=== PATIENT | female | born 1975 | race Caucasian/White ===

== ENCOUNTER 2016-11-27 11:32 | Observation (INO) | payer BC ==
[2016-11-27] VITALS (9 sets, daily range): BP systolic 126–152; BP diastolic 82–91; PULSE 68–95; RESP 12–25; TEMP 96.7–97.8; O2SAT 95–100
[~2016-11-27 11:32] MED LIST: AMIT10 PO; CITA10SO PO; CLON.5 PO; HYDR-3129 PO; ONDA8TAB8 PO
[2016-11-27] MEDS ORDERED: CLON1 PO (12:19)
[2016-11-27] MEDS ORDERED: METO50TA PO (12:19)
[2016-11-27] MEDS ORDERED: VORT1TAB2 PO (12:19)
[2016-11-27] MEDS ORDERED: ASPIRIN 81 MG CHEW TAB PO ONE (13:00)
[2016-11-27] MEDS ORDERED: LORazepam 2 MG/ML VIAL IV PUSH ONE (13:00)
[2016-11-27] MEDS ORDERED: SODIUM CHLORIDE 0.9% FLUSH 5 ML FLUSH IVF PRN ×2 (13:00→15:15)
--- NOTE | 2016-11-27 13:12 | PD ---
HPI . Chest pain Chief Complaint: Chest Pain Time Seen by Provider: 12:16 Travel History International Travel<30 days: No Contact w/Intl Traveler<30days: No Traveled to known affect area: No History of Present Illness HPI Patient presents with chest pain which started yesterday. It is associated with dizziness, shortness of breath, tingling in her lips, blurred vision and high blood pressure. PFSH Past Medical History Anxiety: Yes Depression: Yes Heart Rhythm Problems: No Cancer: No Cardiovascular Problems: Yes (HEART MURMUR) High Cholesterol: No Chest Pain: Yes Congestive Heart Failure: No Diminished Hearing: No Endocrine: No Genitourinary: No Hypertension: Yes Immune Disorder: No Musculoskeletal: No Neurologic: No Psychiatric: Yes Reproductive: Yes (Endometriosis) Respiratory: Yes Tetanus Vaccination: Unknown Influenza Vaccination: Yes ?: Not Dilation and Curettage (D&C): Yes Past Surgical History Section: Yes Gynecologic Surgery: Yes ( , HYSTERECTOMY ) Hysterectomy: Yes Tonsillectomy: Yes Other Surgery: Yes (BACK ) Social History Alcohol Use: Yes Tobacco Use: No Substance Use: No Allergies-Medications (Allergen,Severity, Reaction): Coded Allergies: Flagyl (Verified Allergy, Unknown, 11/27/16) Reported Meds & Prescriptions Reported Meds & Active Scripts Active Reported Trintellix (Vortioxetine) 10 Mg Tab 10 Mg PO DAILY Metoprolol Tartrate 50 Mg Tab 50 Mg PO DAILY Klonopin (Clonazepam) 1 Mg Tab 1 Mg PO BID Review of Systems Except as stated in HPI: all other systems reviewed are Neg Eyes: Positive: Blurred Vision HENT: Positive: Lightheadedness Cardiovascular: Positive: Chest Pain or Discomfort Respiratory: Positive: Shortness of Breath Neurologic: Positive: Paresthesia Physical Exam Narrative GENERAL: The patient appears anxious to me SKIN: Warm and dry. HEAD: Atraumatic. Normocephalic. EYES: Pupils equal and round. ENT: No nasal bleeding or discharge. Mucous membranes pink and moist. NECK: Trachea midline. Neck is supple. CARDIOVASCULAR: Regular rate and rhythm. Heart sounds are normal. RESPIRATORY: No accessory muscle use. Lungs are clear with full air movement throughout. GASTROINTESTINAL: Abdomen soft, non-tender, nondistended. MUSCULOSKELETAL: No obvious deformities. No edema. NEUROLOGICAL: Awake and alert. No obvious cranial nerve deficits. Motor grossly within normal limits. Normal speech. PSYCHIATRIC: Appropriate mood and affect; insight and judgment normal. Anxious appearing. Data Data Last Documented VS Vital Signs Date Time Temp Pulse Resp B/P Pulse Ox O2 Delivery O2 Flow Rate FiO2 11/27/16 13:30 89 129/82 11/27/16 12:05 Room Air 11/27/16 12:05 97.5 16 100 Orders Electrocardiogram (11/27/16 11:56) Basic Metabolic Panel (Bmp) (11/27/16 12:54) Ckmb (Isoenzyme) Profile (11/27/16 12:54) Complete Blood Count With Diff (11/27/16 12:54) Magnesium (Mg) (11/27/16 12:54) Troponin I (11/27/16 12:54) Chest, Single Ap (11/27/16 12:54) Ecg Monitoring (11/27/16 12:54) Bilateral Bp Monitoring (11/27/16 12:54) Iv Access Insert/Monitor (11/27/16 12:54) Oximetry (11/27/16 12:54) Oxygen Administration (11/27/16 12:54) Aspirin Chew (Aspirin Chew) (11/27/16 13:00) Sodium Chloride 0.9% Flush (Ns Flush) (11/27/16 13:00) Lorazepam Inj (Ativan Inj) (11/27/16 13:00) CKMB (11/27/16 12:10) CKMB% (11/27/16 12:10) Labs Laboratory Tests Test 11/27/16 12:10 White Blood Count 9.4 TH/MM3 Red Blood Count 4.74 MIL/MM3 Hemoglobin 14.7 GM/DL Hematocrit 43.0 % Mean Corpuscular Volume 90.8 FL Mean Corpuscular Hemoglobin 31.0 PG Mean Corpuscular Hemoglobin 34.2 % Concent Red Cell Distribution Width 12.4 % Platelet Count 352 TH/MM3 Mean Platelet Volume 9.3 FL Neutrophils (%) (Auto) 62.7 % Lymphocytes (%) (Auto) 21.9 % Monocytes (%) (Auto) 11.1 % Eosinophils (%) (Auto) 3.3 % Basophils (%) (Auto) 1.0 % Neutrophils # (Auto) 5.9 TH/MM3 Lymphocytes # (Auto) 2.0 TH/MM3 Monocytes # (Auto) 1.0 TH/MM3 Eosinophils # (Auto) 0.3 TH/MM3 Basophils # (Auto) 0.1 TH/MM3 CBC Comment DIFF FINAL Differential Comment Sodium Level 140 MEQ/L Potassium Level 4.4 MEQ/L Chloride Level 106 MEQ/L Carbon Dioxide Level 26.3 MEQ/L Anion Gap 8 MEQ/L Blood Urea Nitrogen 15 MG/DL Creatinine 0.83 MG/DL Estimat Glomerular Filtration 76 ML/MIN Rate Random Glucose 89 MG/DL Calcium Level 9.5 MG/DL Magnesium Level 2.4 MG/DL Total Creatine Kinase 146 U/L Creatine Kinase MB 0.7 NG/ML Troponin I LESS THAN 0.02 NG/ML MDM Medical Decision Making Medical Screen Exam Complete: Yes Emergency Medical Condition: Yes Interpretation(s) EKG shows a normal sinus rhythm with no ST segment elevation or depression. Differential Diagnosis Differential diagnosis of chest pain includes but is not limited to musculoskeletal pain, pulmonary embolism, acute coronary syndrome, pneumonia, pleurisy Narrative Course Patient presents for the evaluation and treatment of chest pain associated with dizziness, shortness of breath, paresthesias, blurred vision. She most likely has anxiety. I have ordered Ativan pending her cardiac workup. CBC is normal. Chemistries are normal. Cardiac enzymes are negative. Chest x-ray is negative to the radiologist's interpretation. Chest x-ray was independently viewed by me. Patient complains of continued symptoms. I will admit her to the chest pain center. Critical Care Narrative Aggregate critical care time was [-] minutes. Time to perform other separately billable procedures was not included in the critical care time. My time did not include minutes spent treating any other patients simultaneously or on activities that did not directly contribute to the patient's treatment. The services I provided to this patient were to treat and/or prevent clinically significant deterioration that could result in: ACS, cardiac dysrhythmia, cardiac disability I provided critical care services requiring my management, as noted below: Chart data review, documentation time, medication orders and management, vital sign assessments/reviewing monitor data, ordering and reviewing lab tests, ordering and interpreting/reviewing x-rays and diagnostic studies, care of the patient and discussion of the patient with the admitting physicians. Diagnosis Primary Impression: Chest pain Qualified Code: R07.9 - Chest pain, unspecified type Admitting Information Admitting Physician Requests: Admit Condition: Stable Yeni Fregoso MD Nov 27, 2016 13:12
--- NOTE | 2016-11-27 13:21 | RADRPT ---
EXAM DATE/TIME: 11/27/2016 13:07 [facility] COMPARISON: No previous studies available for comparison. INDICATIONS : Chest pain. MEDICAL HISTORY : Heart murmur. SURGICAL HISTORY : None. ENCOUNTER: Initial ACUITY: 2 days PAIN SCORE: 8/10 LOCATION: Left lower chest FINDINGS: A single view of the chest demonstrates the lungs to be symmetrically aerated without evidence of mas s, infiltrate or effusion. The cardiomediastinal contours are unremarkable. Osseous structures are intact. CONCLUSION: 1. No acute cardiopulmonary findings identified. Arun Kemp MD on November 27, 2016 at 13:19 Board Certified Radiologist. This report was verified electronically.
[2016-11-27 13:33] LABS: AUTOMATED NEUTROPHIL # 5.9 TH/MM3 (1.8-7.7); BASOPHIL # 0.1 TH/MM3 (0-0.2); EOSINOPHIL # 0.3 TH/MM3 (0-0.4); EOSINOPHIL % 3.3 % (0.0-4.0); HEMO FLAGS DIFF FINAL; LYMPH % 21.9 % (9.0-44.0); MEAN CELL VOLUME 90.8 FL (80.0-100.0); MEAN CORPUSCULAR HGB CONC 34.2 % (32.0-36.0); MONO % 11.1 % (0.0-8.0); NEUT % 62.7 % (16.0-70.0); PLATELET COUNT 352 TH/MM3 (150-450); RED BLOOD COUNT 4.74 MIL/MM3 (4.00-5.30); RED CELL DISTRIBUTION WIDTH 12.4 % (11.6-17.2); WHITE BLOOD COUNT 9.4 TH/MM3 (4.0-11.0)
[2016-11-27 14:04] LABS: ANION GAP 8 MEQ/L (5-15); BICARBONATE 26.3 MEQ/L (21.0-32.0); BLOOD UREA NITROGEN 15 MG/DL (7-18); CHLORIDE 106 MEQ/L (98-107); CREATINE KINASE 146 U/L (26-192); GLOMERULAR FILTRATION RATE 76 ML/MIN (>89); MAGNESIUM 2.4 MG/DL (1.5-2.5); POTASSIUM 4.4 MEQ/L (3.5-5.1); SODIUM (NA) 140 MEQ/L (136-145)
[2016-11-27 14:17] LABS: CKMB 0.7 NG/ML (0.5-3.6)
[2016-11-27] MEDS ORDERED: ONDANSETRON HCL 4 MG/2 ML VIAL IV PUSH ONE (14:30)
[2016-11-27] MEDS ORDERED: METO50TA11 PO (15:11)
[2016-11-27] MEDS ORDERED: ACETAMINOPHEN/HYDROcodone 325 MG/7.5 MG TAB PO PRN (15:15)
[2016-11-27] MEDS ORDERED: ACETAMINOPHEN 500 MG CPLT PO PRN (15:15)
[2016-11-27] MEDS ORDERED: KETOROLAC TROMETHAMINE 30 MG/ML (IVP) VIAL IVP ONE (15:15)
[2016-11-27] MEDS: PANTOPRAZOLE SOD 40 MG DELAYED RELEASE TAB PO SCH (16:41)
[2016-11-27] MEDS ORDERED: TEMAZEPAM 15 MG CAP PO PRN (16:45)
[2016-11-27 16:53] LABS: CREATINE KINASE 99 U/L (26-192)
[2016-11-27] MEDS ORDERED: SODIUM CHLORID 0.9% 500 ML INJ 500 ML IV SCH (17:00)
[2016-11-27] MEDS: HYDROmorphone HCL PF 1 MG/ML VIAL IV PUSH PRN ×2 (18:22→22:34)
[2016-11-27 19:18] LABS: CREATINE KINASE 91 U/L (26-192)
[2016-11-27] MEDS: SODIUM CHLORIDE 0.9% FLUSH 5 ML FLUSH IVF SCH (21:00)
[2016-11-27] MEDS: clonazePAM 1 MG TAB PO SCH (21:14)
[2016-11-27] MEDS: ONDANSETRON HCL 4 MG/2 ML VIAL IV PRN (22:35)
[2016-11-28] VITALS (12 sets, daily range): BP systolic 90–130; BP diastolic 52–89; PULSE 54–80; RESP 16–20; TEMP 97.5–98.2; O2SAT 94–99
[2016-11-28] MEDS: HYDROmorphone HCL PF 1 MG/ML VIAL IV PUSH PRN ×4 (03:04→21:52)
[2016-11-28] MEDS: METOPROLOL SUCCINATE 50 MG EXTENDED RELEASE TAB PO SCH ×2 (06:33→07:57)
[2016-11-28] MEDS: ONDANSETRON HCL 4 MG/2 ML VIAL IV PRN ×3 (07:57→23:30)
[2016-11-28] MEDS: SODIUM CHLORIDE 0.9% FLUSH 5 ML FLUSH IVF SCH ×2 (07:58→20:22)
[2016-11-28] MEDS: PANTOPRAZOLE SOD 40 MG DELAYED RELEASE TAB PO SCH (07:58)
[2016-11-28] MEDS: ASPIRIN 325 MG TAB PO SCH (07:58)
[2016-11-28] MEDS: clonazePAM 1 MG TAB PO SCH ×2 (07:58→20:19)
--- NOTE | 2016-11-28 08:56 | PD.CARD.PN ---
Subjective Subjective Remarks PT COMPLAINS OF CONSTANT CP. THE PAIN HAS BEEN PRESENT FOR TWO DAYS. ALSO C/O OF EMESIS BUT DENIES ABDOMINAL PAIN. Objective Vital Signs / I&O Vital Signs Date Time Temp Pulse Resp B/P Pulse Ox O2 Delivery O2 Flow Rate FiO2 11/28/16 07:47 97.5 68 20 115/77 95 11/28/16 06:28 97.6 67 18 91/62 99 11/28/16 02:30 94/62 11/28/16 02:05 97.5 70 18 90/56 98 11/28/16 00:34 98.1 54 16 95/52 94 11/27/16 21:27 68 11/27/16 21:18 95 21 11/27/16 20:32 97.7 81 18 126/90 95 11/27/16 18:51 18 11/27/16 17:53 18 11/27/16 16:51 96.7 95 18 126/88 95 11/27/16 13:30 89 129/82 11/27/16 13:00 92 18 129/82 99 Room Air 11/27/16 12:05 Room Air 11/27/16 12:00 97.8 85 25 146/91 96 Room Air 11/27/16 11:34 97.8 89 12 152/90 99 Room Air Physical Exam CARDIAC: RRR LUNGS: CTA ABD: NON TENDER. Laboratory Laboratory Tests Test 11/27/16 11/27/16 11/27/16 11/27/16 12:10 15:50 17:50 20:45 White Blood Count 9.4 TH/MM3 Red Blood Count 4.74 MIL/MM3 Hemoglobin 14.7 GM/DL Hematocrit 43.0 % Mean Corpuscular Volume 90.8 FL Mean Corpuscular Hemoglobin 31.0 PG Mean Corpuscular Hemoglobin 34.2 % Concent Red Cell Distribution Width 12.4 % Platelet Count 352 TH/MM3 Mean Platelet Volume 9.3 FL Neutrophils (%) (Auto) 62.7 % Lymphocytes (%) (Auto) 21.9 % Monocytes (%) (Auto) 11.1 % Eosinophils (%) (Auto) 3.3 % Basophils (%) (Auto) 1.0 % Neutrophils # (Auto) 5.9 TH/MM3 Lymphocytes # (Auto) 2.0 TH/MM3 Monocytes # (Auto) 1.0 TH/MM3 Eosinophils # (Auto) 0.3 TH/MM3 Basophils # (Auto) 0.1 TH/MM3 CBC Comment DIFF FINAL Differential Comment Sodium Level 140 MEQ/L Potassium Level 4.4 MEQ/L Chloride Level 106 MEQ/L Carbon Dioxide Level 26.3 MEQ/L Anion Gap 8 MEQ/L Blood Urea Nitrogen 15 MG/DL Creatinine 0.83 MG/DL Estimat Glomerular Filtration 76 ML/MIN Rate Random Glucose 89 MG/DL Calcium Level 9.5 MG/DL Magnesium Level 2.4 MG/DL Total Creatine Kinase 146 U/L 99 U/L 91 U/L Creatine Kinase MB 0.7 NG/ML Troponin I LESS THAN 0.02 LESS THAN 0.02 LESS THAN 0.02 NG/ML NG/ML NG/ML D-Dimer Quantitative (PE/DVT) LESS THAN 0.19 MG/L FEU Assessment and Plan Assessment and Plan ATYPICAL CHEST PAIN: PATIENT EVALUATED BY DR TIMA LA, SYMPTOMS NOT CARDIAC. WILL ADMIT TO [facility] FOR FURTHER EVALUATION. Rishabh Zapien Nov 28, 2016 08:56
[2016-11-28] MEDS ORDERED: VORTIOXETINE 10 MG PO SCH (09:00)
[2016-11-28 09:45] LABS: INDIRECT BILIRUBIN 0.5 MG/DL (0.0-0.8); TOTAL BILIRUBIN ADULT 0.6 MG/DL (0.2-1.0)
--- NOTE | 2016-11-28 10:26 | MH ---
cc: JAG LA DATE OF ADMISSION: 11/27/2016 1975 CHIEF COMPLAINT Chest pain HISTORY OF PRESENT ILLNESS This is a 41-year-old female that presents to the ED with complaint of chest comfort and blood pressure issue. The patient states that her blood pressure has been elevated for the past week. She has been to a doctor several times over this week and it had been high every time. Most recent 155/111 which was earlier today. She has been feeling dizzy and lightheaded. She also states that she had a little blurred vision, tingling in her fingers and her lips. She denies any not weakness in her extremities. She has felt nauseous. She also complains of a squeezing inside of her chest that began around 1 o'clock in the morning. That has been there constantly ever since. She states it is worse with any type of movements. She states she follows with [facility] [employer] which is Dr. Quiros. The patient states she follows with him for hypertension. She has never had a cardiac workup. She states she has never had a stress test, heart catheterization. Her primary care physician is ____. Denies recent illness. Denies fever, chills. PAST MEDICAL HISTORY 1. Hypertension, 2. Chronic back pain. Denies hyperlipidemia, diabetes and known CAD. FAMILY HISTORY She denies family history of CAD. SOCIAL HISTORY The patient is a lifetime nonsmoker, has on average one or two beers a week. Denies illicit drugs. She is currently from her . PAST SURGICAL HISTORY 1. , 2. Hysterectomy, 3. Tonsillectomy 4. L5-S1 diskectomy. 5. She has had twelve laparoscopies secondary to endometriosis and is scheduled to have another procedure beginning of next month for similar. ALLERGIES FLAGYL MEDICATIONS 1. Trintellix 2. Metoprolol succinate. 3. Klonopin. REVIEW OF SYSTEMS GENERAL: Denies fevers or chills. Denies recent illnesses. HEENT: Denies headache, earache, sore throat, difficulty swallowing. CARDIOVASCULAR: Describes the discomfort as mentioned above. Denies diaphoresis. Denies sensation of heart beating rapidly or irregularly. Denies syncope. RESPIRATORY: Denies shortness of breath or inspirational chest discomfort. Denies coughing, wheezing or hemoptysis. GI: Denies nausea, vomiting, diarrhea, abdominal pain or blood in stool. MUSCULOSKELETAL: Complains of chronic back pain. Denies calf pain or swelling. NEUROVASCULAR: Denies headache. She was feeling a little dizzy. She denies any tingling in her fingertips and her lips. Denies weakness in extremities. ENDOCRINE: Denies polydipsia HEMATOLOGIC: Denies bruising. SKIN: Denies rash or itching. PHYSICAL EXAMINATION VITAL SIGNS: In the emergency initially included a blood pressure of 152/90, heart rate is 99, respirations 12, pulse oximetry 98% on room air and she is afebrile. Most recent vital signs include blood pressure 122/89. GENERAL: The patient seen in the examination room in no apparent stress. She is pleasant. She speaks in clear and complete sentences. Her daughter and soon to be step daughter are also at the bedside. HEENT: Head is atraumatic, normocephalic. NECK: Supple without lymphadenopathy. Trachea midline. No JVD or carotid bruit. CARDIOVASCULAR: Regular rate and rhythm without gallop or rub. Grade 2 systolic murmur at left sternal border. RESPIRATORY: Clear to auscultation bilaterally. No wheezing, rales or rhonchi. No use of accessory muscles. There is a rather easily reproducible discomfort to the chest wall even with auscultating with a stethoscope. GI: Abdomen is nontender, nondistended. Bowel sounds are normal. No guarding or rebound. No obvious pulsatile mass or bruit. No CVA tenderness. Strong femoral pulses bilaterally. MUSCULOSKELETAL: Patient moving upper and lower extremities freely. No joint tenderness or edema. No calf tenderness or edema, no Homans' sign. Strong pulses in upper and lower extremities NEUROVASCULAR: The patient is alert and oriented. Cranial II-XII are grossly intact. No focal deficits and speech is clear. SKIN: No rashes and turgor is normal. LABORATORY DATA CBC is unremarkable. Basic metabolic panel is essentially unremarkable. GFR is mildly increased at 76. First set of cardiac enzymes normal. IMAGING STUDIES Single view chest x-ray read by radiology as no acute cardiopulmonary findings. CARDIOLOGY STUDIES EKGs - first two EKGs are sinus rhythm without significant ST segment depression or elevation. ASSESSMENT 1. Chest pain: The patient's discomfort is atypical. She will continue to have serial cardiac enzymes and EKGs for ruling out purposes. She has been seen by Dr. Jag La and will reevaluate in the morning to determine if she needs stress testing. Otherwise, she will be monitored overnight. 2. Hypertension: Continue current medication. The patient is stable at this time. She is agreeable to this plan. Dictated by VIRGEN Jesus MD NERY Braga/ /4:51 PM /10:25 AM
--- NOTE | 2016-11-28 13:24 | HHI.PR ---
Subjective Remarks resting comfortably with no distress. has some chest wall pain. no sob. wants to try something to eat. Objective Vitals Vital Signs Date Time Temp Pulse Resp B/P Pulse Ox O2 Delivery O2 Flow Rate FiO2 11/28/16 12:21 98.2 65 20 109/68 99 11/28/16 08:26 64 11/28/16 07:47 97.5 68 20 115/77 95 11/28/16 06:28 97.6 67 18 91/62 99 11/28/16 02:30 94/62 11/28/16 02:05 97.5 70 18 90/56 98 11/28/16 00:34 98.1 54 16 95/52 94 11/27/16 21:27 68 11/27/16 21:18 95 21 11/27/16 20:32 97.7 81 18 126/90 95 11/27/16 18:51 18 11/27/16 17:53 18 11/27/16 16:51 96.7 95 18 126/88 95 11/27/16 13:30 89 129/82 Result Diagram: 11/27/16 1210 11/27/16 1210 Imaging Last Impressions Chest X-Ray 11/27/16 1254 Signed Impressions: Service Date/Time: November 13:07 - CONCLUSION: 1. No acute cardiopulmonary findings identified. Arun Kemp MD Objective Remarks GENERAL: This is a well-nourished, well-developed patient, in no apparent distress. CARDIOVASCULAR: Regular rate and regular rhythm without murmurs, gallops, or rubs. RESPIRATORY: Clear to auscultation. Breath sounds equal bilaterally. No wheezes , rales, or rhonchi. GASTROINTESTINAL: Abdomen soft, non-tender, nondistended. Normal, active bowel sounds MUSCULOSKELETAL: Extremities without clubbing, cyanosis, or edema. NEURO: Alert & Oriented x4 to person, place, time, situation. Moves all ext x4 Procedures none Medications and IVs Current Medications Aspirin (Aspirin Chew) 81 mg ONCE ONCE PO Last administered on 11/27/16t 13:36 ; Start 11/27/16 at 13:00; Stop 11/27/16 at 13:01; Status DC IV Flush (NS Flush) 2 ml UNSCH PRN IVF FLUSH AFTER USING IV ACCESS Last administered on 11/27/16 13:36; Start 11/27/16 at 13:00; Stop 11/27/16 at 15:22 ; Status DC Lorazepam (Ativan Inj) 2 mg ONCE ONCE IV PUSH Last administered on 11/27/16 13:35; Start 11/27/16 at 13:00; Stop 11/27/16 at 13:01; Status DC Ondansetron HCl (Zofran Inj) 4 mg ONCE ONCE IV PUSH Last administered on 14:28; Start 11/27/16 at 14:30; Stop 11/27/16 at 14:31; Status DC Ketorolac Tromethamine (Toradol Inj) 30 mg ONCE ONCE IVP ; Start 11/27/16 at 15 :15; Stop 11/27/16 at 16:36; Status DC IV Flush (NS Flush) 2 ml UNSCH PRN IVF FLUSH AFTER USING IV ACCESS; Start 11/27 at 15:15 IV Flush (NS Flush) 2 ml BID IVF Last administered on 11/28/16 07:58; Start at 21:00 Acetaminophen (Tylenol) 500 mg Q4H PRN PO HEADACHE; Start 11/27/16 at 15:15 Acetaminophen/ Hydrocodone Bitart ([place] 7.5-325 Mg) 1 tab Q4H PRN PO PAIN SCALE 1 TO 7 Last administered on 11/27/16 16:07; Start 11/27/16 at 15:15 Ondansetron HCl (Zofran Inj) 4 mg Q6H PRN IV NAUSEA Last administered on 07:57; Start 11/27/16 at 15:15 Pantoprazole Sodium (Protonix) 40 mg DAILY PO Last administered on 11/28/16 07 :58; Start 11/27/16 at 15:15 Aspirin (Aspirin) 325 mg DAILY PO Last administered on 11/28/16 07:58; Start 11/28/16 at 09:00 Clonazepam (KlonoPIN) 1 mg BID PO Last administered on 11/28/16 07:58; Start 11/27/16 at 21:00 Patient Own Medication PT OWN MED: Vortioxetine (Trintellix... DAILY PO ; Start 11/28/16 at 09:00; Status Hold Hydromorphone HCl (Dilaudid Pf Inj) 1 mg Q4H PRN IV PUSH PAIN GREATER THAN 8 Last administered on 11/28/16 12:50; Start 11/27/16 at 16:45 Temazepam (Restoril) 15 mg HS PRN PO INSOMNIA; Start 11/27/16 at 16:45 Metoprolol Succinate 50 mg 50 mg DAILY PO Last administered on 11/28/16 07:57 ; Start 11/28/16 at 09:00 Sodium Chloride (NS 500 ml Inj) 500 ml @ 125 mls/hr NOW IV Last administered on 11/27/16 17:43; Start 11/27/16 at 17:00; Stop 11/27/16 at 20:59; Status DC A/P Assessment and Plan A/P - chest pain; atypical- enzymes negative- evaluated by cardiology. continue with pain control- -anxiety; continue Klonopin -nausea- better- will start liquid diet and advance as tolerated. -hypertension; continue BB and monitor -history of endometriosis- f/u as outpatient. Oma Jiang MD Nov 28, 2016 13:24
[2016-11-28] MEDS ORDERED: ACETAMINOPHEN/HYDROcodone 325 MG/7.5 MG TAB PO PRN ×2 (13:30)
--- NOTE | 2016-11-28 15:17 | EKG ---
Date Performed: 11/28/2016 Time Performed: 01:58:35 PTAGE: 41 years EKG: Sinus rhythm NONSPECIFIC T-WAVE ABNORMALITY BORDERLINE ECG PREVIOUS TRACING : 11/27/2016 18.13 With shortened [place] interval DOCTOR: Jag Newell Interpretating Date/Time 11/28/2016 15:16:13
--- NOTE | 2016-11-28 15:20 | EKG ---
Date Performed: 11/27/2016 Time Performed: 18:13:47 PTAGE: 41 years EKG: Sinus rhythm NONSPECIFIC ST & T-WAVE ABNORMALITY BORDERLINE ECG PREVIOUS TRACING : 11/27/2016 15.41 Since previous tracing, no significant change noted DOCTOR: Jag Newell Interpretating Date/Time 11/28/2016 15:19:15
--- NOTE | 2016-11-28 15:21 | EKG ---
Date Performed: 11/27/2016 Time Performed: 15:41:46 PTAGE: 41 years EKG: Sinus rhythm ABNORMAL ECG PREVIOUS TRACING : 11/27/2016 11.52 Since previous tracing, no significant change noted DOCTOR: Jag Newell Interpretating Date/Time 11/28/2016 15:20:04
--- NOTE | 2016-11-28 15:22 | EKG ---
Date Performed: 11/27/2016 Time Performed: 11:52:03 PTAGE: 41 years EKG: Sinus rhythm POSSIBLE LEFT ATRIAL ENLARGEMENT ABNORMAL ECG PREVIOUS TRACING : 06/15/2016 17.22 Since previous tracing, no significant change noted DOCTOR: Jag Newell Interpretating Date/Time 11/28/2016 15:21:31
[2016-11-29] MEDS: HYDROmorphone HCL PF 1 MG/ML VIAL IV PUSH PRN (01:56)
[2016-11-29 03:56] VITALS: BP 93/51; PULSE 61; RESP 19; TEMP 97.8; O2SAT 96
--- NOTE | 2016-11-29 07:35 | HHI.PR ---
Subjective Remarks feels somewhat better today. pain is better today. says that she's good enough to go home. d/w the RN. Objective Vitals Vital Signs Date Time Temp Pulse Resp B/P Pulse Ox O2 Delivery O2 Flow Rate FiO2 11/29/16 03:56 97.8 61 19 93/51 96 11/29/16 02:59 14 11/28/16 23:21 71 112/76 11/28/16 21:40 80 130/89 11/28/16 20:13 97.7 59 19 113/74 99 11/28/16 20:00 74 11/28/16 20:00 99 11/28/16 15:40 97.8 65 16 91/52 97 11/28/16 12:21 98.2 65 20 109/68 99 11/28/16 08:26 64 11/28/16 07:47 97.5 68 20 115/77 95 Result Diagram: 11/27/16 1210 11/27/16 1210 Imaging Last Impressions Chest X-Ray 11/27/16 1254 Signed Impressions: Service Date/Time: November 13:07 - CONCLUSION: 1. No acute cardiopulmonary findings identified. Arun Kemp MD Objective Remarks GENERAL: This is a well-nourished, well-developed patient, in no apparent distress. CARDIOVASCULAR: Regular rate and regular rhythm without murmurs, gallops, or rubs. RESPIRATORY: Clear to auscultation. Breath sounds equal bilaterally. No wheezes , rales, or rhonchi. GASTROINTESTINAL: Abdomen soft, non-tender, nondistended. Normal, active bowel sounds MUSCULOSKELETAL: Extremities without clubbing, cyanosis, or edema. NEURO: Alert & Oriented x4 to person, place, time, situation. Moves all ext x4 Procedures none Medications and IVs Current Medications Aspirin (Aspirin Chew) 81 mg ONCE ONCE PO Last administered on 11/27/16 13:36 ; Start 11/27/16 at 13:00; Stop 11/27/16 at 13:01; Status DC IV Flush (NS Flush) 2 ml UNSCH PRN IVF FLUSH AFTER USING IV ACCESS Last administered on 11/27/16 13:36; Start 11/27/16 at 13:00; Stop 11/27/16 at 15:22 ; Status DC Lorazepam (Ativan Inj) 2 mg ONCE ONCE IV PUSH Last administered on 11/27/16 13:35; Start 11/27/16 at 13:00; Stop 11/27/16 at 13:01; Status DC Ondansetron HCl (Zofran Inj) 4 mg ONCE ONCE IV PUSH Last administered on 14:28; Start 11/27/16 at 14:30; Stop 11/27/16 at 14:31; Status DC Ketorolac Tromethamine (Toradol Inj) 30 mg ONCE ONCE IVP ; Start 11/27/16 at 15 :15; Stop 11/27/16 at 16:36; Status DC IV Flush (NS Flush) 2 ml UNSCH PRN IVF FLUSH AFTER USING IV ACCESS; Start 11/27 at 15:15 IV Flush (NS Flush) 2 ml BID IVF Last administered on 11/28/16 20:22; Start at 21:00 Acetaminophen (Tylenol) 500 mg Q4H PRN PO HEADACHE; Start 11/27/16 at 15:15 Acetaminophen/ Hydrocodone Bitart ([place] 7.5-325 Mg) 1 tab Q4H PRN PO PAIN SCALE 1 TO 7 Last administered on 11/27/16 16:07; Start 11/27/16 at 15:15; Stop 11/28/16 at 13:26; Status DC Ondansetron HCl (Zofran Inj) 4 mg Q6H PRN IV NAUSEA Last administered on 23:30; Start 11/27/16 at 15:15 Pantoprazole Sodium (Protonix) 40 mg DAILY PO Last administered on 11/28/16 07 :58; Start 11/27/16 at 15:15 Aspirin (Aspirin) 325 mg DAILY PO Last administered on 11/28/16 07:58; Start 11/28/16 at 09:00 Clonazepam (KlonoPIN) 1 mg BID PO Last administered on 11/28/16 20:19; Start 11/27/16 at 21:00 Patient Own Medication PT OWN MED: Vortioxetine (Trintellix... DAILY PO ; Start 11/28/16 at 09:00; Status Hold Hydromorphone HCl (Dilaudid Pf Inj) 1 mg Q4H PRN IV PUSH PAIN GREATER THAN 8 Last administered on 11/29/16 01:56; Start 11/27/16 at 16:45 Temazepam (Restoril) 15 mg HS PRN PO INSOMNIA Last administered on 11/28/16 23 :31; Start 11/27/16 at 16:45 Metoprolol Succinate 50 mg 50 mg DAILY PO Last administered on 11/28/16 07:57 ; Start 11/28/16 at 09:00 Sodium Chloride (NS 500 ml Inj) 500 ml @ 125 mls/hr NOW IV Last administered on 11/27/16 17:43; Start 11/27/16 at 17:00; Stop 11/27/16 at 20:59; Status DC Acetaminophen/ Hydrocodone Bitart ([place] 7.5-325 Mg) 1 tab Q4H PRN PO PAIN 4-6 ; Start 11/28/16 at 13:30 Acetaminophen/ Hydrocodone Bitart ([place] 7.5-325 Mg) 2 tab Q6H PRN PO PAIN 7- 10 Last administered on 11/28/16 20:18; Start 11/28/16 at 13:30 A/P Assessment and Plan A/P - chest pain; atypical- enzymes negative- evaluated by cardiology and believed that the pain is not cardiac. pain is better today. -anxiety; continue Klonopin- f/u with psych as outpatient. -nausea- better- will advance the diet -hypertension; continue BB and monitor -history of endometriosis- f/u as outpatient. Discharge Planning dc home later today if tolerating the diet. f/u with pcp and psych. see med list. d/w the patient and RN. Oma Jiang MD Nov 29, 2016 07:35
[2016-11-29] MEDS ORDERED: NORC5TAB PO (07:36)
--- NOTE | 2016-11-29 07:37 | HHI.DCPOC ---
Discharge Care Plan Diagnosis: (1) Chest pain Your Health Problems Are: Chest Pain Goals to Promote Your Health * To prevent worsening of your condition and complications * To maintain your health at the optimal level Directions to Meet Your Goals Take your medications as prescribed Follow your dietary instruction Follow activity as directed Keep your appointments as scheduled Take your immunizations and boosters as scheduled If your symptoms worsen call your PCP, if no PCP go to Urgent Care Center or Emergency Room Smoking is Dangerous to Your Health. Avoid second hand smoke Call the 24-hour hour crisis hotline for domestic abuse at Oma Jiang MD Nov 29, 2016 07:37
--- NOTE | 2016-11-29 07:37 | HHI.DS ---
Discharge Summary Admission Date Nov 27, 2016 at 14:25 Discharge Date: Nov 29, 2016 Admitting Diagnosis chest pain (1) Chest pain ICD Code: R07.9 Diagnosis: Principal Procedures none Brief History - From Admission This is a 41-year-old female that presents to the ED with complaint of chest comfort and blood pressure issue. The patient states that her blood pressure has been elevated for the past week. She has been to a doctor several times over this week and it had been high every time. Most recent 155/111 which was earlier today. She has been feeling dizzy and lightheaded. She also states that she had a little blurred vision, tingling in her fingers and her lips. She denies any not weakness in her extremities. CBC/BMP: 11/27/16 1210 11/27/16 1210 Significant Findings Laboratory Tests Test 11/27/16 11/27/16 11/27/16 12:10 15:50 17:50 Monocytes (%) (Auto) 11.1 % (0.0-8.0) Monocytes # (Auto) 1.0 TH/MM3 (0-0.9) Estimat Glomerular Filtration 76 ML/MIN (>89) Rate Troponin I LESS THAN 0.02 LESS THAN 0.02 LESS THAN 0.02 NG/ML NG/ML NG/ML (0.02-0.05) (0.02-0.05) (0.02-0.05) Imaging Last Impressions Chest X-Ray 11/27/16 1254 Signed Impressions: Service Date/Time: November 13:07 - CONCLUSION: 1. No acute cardiopulmonary findings identified. Arun Kemp MD PE at Discharge GENERAL: This is a well-nourished, well-developed patient, in no apparent distress. CARDIOVASCULAR: Regular rate and regular rhythm without murmurs, gallops, or rubs. RESPIRATORY: Clear to auscultation. Breath sounds equal bilaterally. No wheezes , rales, or rhonchi. GASTROINTESTINAL: Abdomen soft, non-tender, nondistended. Normal, active bowel sounds MUSCULOSKELETAL: Extremities without clubbing, cyanosis, or edema. NEURO: Alert & Oriented x4 to person, place, time, situation. Moves all ext x4 Hospital Course - chest pain; atypical- enzymes negative- evaluated by cardiology and believed that the pain is not cardiac. pain is better today. -anxiety; continue Klonopin- f/u with psych as outpatient. -nausea- better- will advance the diet -hypertension; continue BB and monitor -history of endometriosis- f/u as outpatient. Pt Condition on Discharge: Fair Discharge Disposition: Discharge Home Discharge Time: <= 30 minutes Discharge Instructions DIET: Follow Instructions for: Heart Healthy Diet Activities you can perform: Regular-No Restrictions Follow up Referrals: PCP Follow-up Psychiatry Adult New Medications: Hydrocodone-Acetaminophen (Sigurd) 5-325 mg Tab 1 TAB PO Q6H PRN PAIN #12 Ref 0 TAB Continued Medications: Clonazepam (Klonopin) 1 Mg Tab 1 MG PO BID #60 Ref 0 TAB Metoprolol Succinate ER 24 HR (Metoprolol Succinate ER 24 HR) 50 Mg Tab 50 MG PO DAILY #30 Ref 0 TAB Vortioxetine (Trintellix) 10 Mg Tab 10 MG PO DAILY Control Depression #30 Ref 0 TAB Oma Jiang MD Nov 29, 2016 07:37
[2016-11-29 07:40] VITALS: BP 102/72; PULSE 62; RESP 17; TEMP 98; O2SAT 99
[2016-11-29] MEDS ORDERED: HYDROmorphone HCL PF 1 MG/ML VIAL IV PUSH ONE (07:45)
[2016-11-29 07:51] VITALS: PULSE 74
[2016-11-29] MEDS: METOPROLOL SUCCINATE 50 MG EXTENDED RELEASE TAB PO SCH (08:08)
[2016-11-29] MEDS: clonazePAM 1 MG TAB PO SCH (08:08)
[2016-11-29] MEDS: ASPIRIN 325 MG TAB PO SCH (08:08)
[2016-11-29] MEDS: SODIUM CHLORIDE 0.9% FLUSH 5 ML FLUSH IVF SCH (08:08)
[2016-11-29] MEDS: PANTOPRAZOLE SOD 40 MG DELAYED RELEASE TAB PO SCH (08:09)
[2016-11-29 08:42] VITALS: RESP 18
--- NOTE | 2016-11-29 14:14 | EKG ---
Date Performed: 11/28/2016 Time Performed: 07:44:41 PTAGE: 41 years EKG: Sinus rhythm POSSIBLE LEFT ATRIAL ENLARGEMENT POSSIBLE RIGHT VENTRICULAR CONDUCTION DELAY ABNORMAL ECG PREVIOUS TRACING : 11/28/2016 01.58 DOCTOR: Braulio Kim Interpretating Date/Time 11/29/2016 14:12:35
== END 2016-11-29 10:54 | disposition home or self-care (01) ==
LOC: NEPA 11:32 → NEDA 14:25 → NEPHCDU 16:49
PROVIDERS: ADMIT Internal Medicine; ATTEND Internal Medicine
DX: R07.89 Other chest pain (principal); I10 Essential (primary) hypertension; F41.9 Anxiety disorder, unspecified; R94.31 Abnormal electrocardiogram [ECG] [EKG]
CPT/HCPCS: 71010; 80048; 80076; 82550; 82552; 83690; 83735; 84484; 85025; 85379; 93005; 96374; 99291; G0378; J1170; J2060; J2405; J7040

== ENCOUNTER 2016-12-29 16:22 | Emergency (ER) | payer BC ==
[~2016-12-29] VITALS: Ht 162.6 cm; Wt 81.9 kg
[~2016-12-29 16:22] MED LIST changes: -AMIT10 PO; -CITA10SO PO; -CLON.5 PO; +CLON1 PO; -HYDR-3129 PO; +METO50TA11 PO; +NORC5TAB PO; -ONDA8TAB8 PO; +VORT1TAB2 PO
[2016-12-29 16:45] VITALS: BP_SYST 85; BP_SYST 91; BP_DIAS 59; BP_DIAS 68; PULSE 62; RESP 16; TEMP 98; O2SAT 100
[2016-12-29] MEDS ORDERED: XANA1TAB2 PO (17:13)
[2016-12-29] MEDS ORDERED: MOTR200T4 PO (17:13)
--- NOTE | 2016-12-29 17:27 | PD ---
HPI Chief Complaint: Abdominal Pain Time Seen by Provider: 17:03 Travel History International Travel<30 days: No Contact w/Intl Traveler<30days: No Traveled to known affect area: No History of Present Illness HPI This is a 41-year-old female who presents to the emergency department with left lower quadrant abdominal pain 2 weeks after having a left oophorectomy performed at [facility]. The patient reports that she's been taking Motrin for pain but it's not been helping. She is her pain is constant, moderate severity, throbbing in the left side, with some associated bleeding from her belly button. She feels like she's not healing as fast as she should be. She went to her follow-up appointment in her doctor felt like she appeared well. She denies any opiate prescriptions in the past month when asked. PFSH Past Medical History Asthma: Yes Anxiety: Yes Depression: Yes Heart Rhythm Problems: No Cancer: No Cardiovascular Problems: Yes (htn on meds) High Cholesterol: No Chest Pain: Yes Congestive Heart Failure: No Diminished Hearing: No Endocrine: No Genitourinary: No Hypertension: Yes Immune Disorder: No Musculoskeletal: No Neurologic: No Psychiatric: Yes Reproductive: Yes (Endometriosis) Respiratory: Yes (asthma) Immunizations Current: Yes Tetanus Vaccination: > 5 Years Influenza Vaccination: Yes ?: Not Ovarian Cysts: Yes (LSO) Dilation and Curettage (D&C): Yes Past Surgical History Section: Yes Gynecologic Surgery: Yes ( , HYSTERECTOMY ) Hysterectomy: Yes Tonsillectomy: Yes Other Surgery: Yes (BACK ) Social History Alcohol Use: Yes Tobacco Use: No Substance Use: No Allergies-Medications (Allergen,Severity, Reaction): Coded Allergies: Flagyl (Verified Allergy, Unknown, 12/29/16) Reported Meds & Prescriptions Reported Meds & Active Scripts Active Reported Xanax (Alprazolam) 1 Mg Tab 1 Mg PO BID PRN Motrin Ib (Ibuprofen) 200 Mg Tab 600 Mg PO Q6HR PRN Metoprolol Succinate ER 24 HR (Metoprolol Succinate) 50 Mg Tab 50 Mg PO BID Trintellix (Vortioxetine) 10 Mg Tab 10 Mg PO DAILY Review of Systems Except as stated in HPI: all other systems reviewed are Neg Physical Exam Narrative GENERAL:Well appearing, no acute distress SKIN: Warm and dry. HEAD: Atraumatic. Normocephalic. EYES: Pupils are 3 mm, equal and reactive. No injection or drainage. ENT: Moist mucous membranes NECK: Trachea midline. CARDIOVASCULAR: Regular rate and rhythm. No murmur appreciated. RESPIRATORY: Clear to auscultation. Breath sounds equal bilaterally. GASTROINTESTINAL: Abdomen soft, tender to palpation in the left lower quadrant and suprapubic region with no rebound or guarding. MUSCULOSKELETAL: No obvious deformities. NEUROLOGICAL: Awake and alert. No obvious cranial nerve deficits. Moving all extremities. PSYCHIATRIC: Appropriate mood and affect; insight and judgment normal. Data Data Last Documented VS Vital Signs Date Time Temp Pulse Resp B/P Pulse Ox O2 Delivery O2 Flow Rate FiO2 12/29/16 16:45 98.0 62 16 85/59 100 91/68 MDM Medical Decision Making Medical Screen Exam Complete: Yes Emergency Medical Condition: Yes Interpretation(s) Afebrile, no tachycardia, blood pressure is low but similar to her blood pressure on prior visit Differential Diagnosis Hemorrhage, abscess, drug-seeking behavior Narrative Course This is a 41-year-old female who presents to the emergency department with abdominal pain associated with a left laparoscopic oophorectomy that was performed at [facility] earlier this month. Her blood pressure is somewhat low but she is not tachycardic and her blood pressure was low when she was admitted in November here for chest pain, so I suspect this is her baseline. I saw the patient 1 year ago in June and I admitted her in the setting of altered mental status and head injury secondary to polypharmacy. At that time the patient was on OxyContin, Fioricet and muscle relaxers. I asked the patient specifically whether she had filled any opiate prescriptions in the past month and she said no. She in fact follows with a pain management doctor in [place] who prescribed her 60 tablets of 10 mg Percocets which she picked up on December 18 which was 11 days ago. I was pretty disconcerted with this inconsistency. I confronted the patient regarding this. She says she is very apologetic but forgot about that prescription. I offered her CT imaging to evaluate the etiology of her symptoms but after our conversation regarding opiates she wanted to follow-up with her [employer] [facility] and didn't want to pay for CT imaging. I think the patient is well-appearing and I doubt that she has a surgical complication. I suspect there is a component of drug seeking behavior. I think she is safe for outpatient follow-up with her surgeon. Patient was discharged home. Diagnosis Primary Impression: Postoperative abdominal pain Patient Instructions: General Instructions Additional Instructions: If you develop severe or worsening abdominal pain, fever>100.4, persistent vomiting or inability to eat or drink return to the emergency department immediately. Follow up with your primary care physician in 1-2 days for a check-up. Med/Other Pt SpecificInfo: No Change to Meds Disposition: 01 DISCHARGE HOME Condition: Stable Jihan Watson MD Dec 29, 2016 17:27
[2016-12-29 17:42] VITALS: BP 118/65
== END 2016-12-29 17:42 | disposition home or self-care (01) ==
LOC: PHED 16:22
DX: G89.18 Other acute postprocedural pain (principal)
CPT/HCPCS: 99283

== ENCOUNTER 2017-04-01 13:04 | Emergency (ER) | payer BC ==
[~2017-04-01] VITALS: Ht 162.6 cm; Wt 81.7 kg
[~2017-04-01 13:04] MED LIST changes: -CLON1 PO; +MOTR200T4 PO; -NORC5TAB PO; +XANA1TAB2 PO
[2017-04-01 13:11] VITALS: BP 115/82; PULSE 80; RESP 16; TEMP 97.6; O2SAT 99
[2017-04-01] MEDS ORDERED: BUTA1CAP2 PO (13:29)
[2017-04-01] MEDS ORDERED: PERC5TAB12 PO (13:29)
[2017-04-01] MEDS ORDERED: ACETAMIN 325 MG/BUTALBITAL 50 MG/CAFFEINE 40 MG TAB PO ONE (14:00)
--- NOTE | 2017-04-01 14:06 | PD ---
HPI Chief Complaint: Fall Time Seen by Provider: 13:30 Travel History International Travel<30 days: No Contact w/Intl Traveler<30days: No Traveled to known affect area: No History of Present Illness HPI 41 year-old female presents to the emergency room for evaluation of headache, right foot pain, low back pain, and tailbone pain after slip and fall 4 days ago. Patient states she was on a boat and slipped on algae, falling backwards and landing on her tailbone. Patient states after hitting her tailbone she struck the back of her head on concrete. She lost consciousness for "a few minutes." Her boyfriend took her home and monitored her overnight. Patient states since then, she has had an extreme headache starting in the back and radiating up to the front. Patient has been taking leftover Fioricet with codeine, Percocet, and Aleve. States the Fioricet helped the most. She has history of chronic back pain and believes this exacerbated her symptoms. She denies loss of bowel or bladder control, saddle anesthesia, or lower extremity paresthesias. She has been ambulatory since onset of symptoms but reports extreme pain in her right foot. Patient states her foot twisted underneath her during the fall. When she uses it, pain shoots up into her lower leg. When asked what bothers her the most today, patient reports her headache. PFSH Past Medical History Asthma: Yes Anxiety: Yes Depression: Yes Heart Rhythm Problems: No Cancer: No Cardiovascular Problems: Yes High Cholesterol: No Chest Pain: Yes Congestive Heart Failure: No Diminished Hearing: No Endocrine: No Genitourinary: No Hypertension: Yes Immune Disorder: No Musculoskeletal: No Neurologic: No Psychiatric: Yes Reproductive: Yes (Endometriosis) Respiratory: Yes (asthma) Immunizations Current: Yes Tetanus Vaccination: Unknown Influenza Vaccination: Yes ?: Not Ovarian Cysts: Yes (LSO) Dilation and Curettage (D&C): Yes Past Surgical History Appendectomy: Yes Section: Yes Gynecologic Surgery: Yes ( , HYSTERECTOMY,left salpingectomy/ orophrectomy ) Hysterectomy: Yes Tonsillectomy: Yes Other Surgery: Yes (BACK ) Social History Alcohol Use: Yes Tobacco Use: No Substance Use: No Allergies-Medications (Allergen,Severity, Reaction): Coded Allergies: Flagyl (Verified Allergy, Unknown, 5/31/17) Reported Meds & Prescriptions Reported Meds & Active Scripts Active Fioricet (Dqkowkhklz-Pellnmejigewm-Ghkeltsu) 50-300-40 Mg Cap 1 Cap PO Q6HR PRN Reported Fioricet-Codeine (Jigjeicuab-Umtgkomrcsfmn-Hidakdrp-Codeine) 60-255-54-30 Mg Cap 1-2 Cap PO Q4H PRN Do not exceed 6 capsules/day. Percocet (Oxycodone-Acetaminophen) 5-325 mg Tab 1 Tab PO Q4H PRN Xanax (Alprazolam) 1 Mg Tab 1 Mg PO TID PRN Review of Systems Except as stated in HPI: all other systems reviewed are Neg Physical Exam Narrative GENERAL: Well-developed, well-nourished female in no acute distress. Afebrile. SKIN: Warm and dry. No erythema. Mild ecchymosis over the right medial foot. HEAD: Atraumatic. Normocephalic. No okeefe sign or raccoon eyes. EYES: PERRL, EOMI, no discharge or injection. No scleral icterus. ENT: Mucosa pink and moist. No erythema or exudates. No uvular edema. No uvular , palatal, or tonsillar deviation. Airway patent. EARS: Bilateral pinnae and external canals appear within normal limits. Bilateral tympanic membranes without erythema, dullness or perforation. No hemotympanum. NECK: Trachea midline. No JVD. No midline tenderness. Full range of motion. CARDIOVASCULAR: Regular rate and rhythm. No murmur appreciated. RESPIRATORY: No accessory muscle use. Clear to auscultation. Breath sounds equal bilaterally. No crackles, rales, wheezes, or rhonchi. BACK: No CVA tenderness. No rash. Patient has exaggerated response to palpation of the spine and paraspinous musculature. She jerks away with very light palpation. EXTREMITY: Right foot to palpation over the first metatarsal. Full range of motion in all joints. No obvious edema. 2+ dorsalis pedis pulse. NEUROLOGICAL: Awake and alert. Cranial nerves 2 through 12 intact. Motor grossly within normal limits. Normal speech. Strength 5/5 and equal in upper and lower extremities. Data Data Last Documented VS Vital Signs Date Time Temp Pulse Resp B/P Pulse Ox O2 Delivery O2 Flow Rate FiO2 04/01/17 16:12 98.5 04/01/17 14:50 16 04/01/17 13:11 80 115/[address] Brain W/O Iv Contrast(Rout) (04/01/17 ) Foot, Complete ([id number]) (04/01/17 ) Efgj-Kkouy-Wmdr 325-50-40 Mg (Fioricet 3 (04/01/17 14:00) Ct Foot W/O Contrast (04/01/17 ) Orphenadrine Inj (Norflex Inj) (04/01/17 16:15) Ketorolac Inj (Toradol Inj) (04/01/17 16:15) MDM Medical Decision Making Medical Screen Exam Complete: Yes Emergency Medical Condition: Yes Medical Record Reviewed: Yes Differential Diagnosis Fracture versus contusion versus abrasion versus sprain versus strain Narrative Course 41 year-old female with a history of chronic low back pain and headaches presents to the emergency room for evaluation of multiple complaints. Patient slipped on a boat ramp and fell 4 days ago landing on her buttocks before striking the back of her head on concrete and passing out for a few minutes. Patient states since then she has had tailbone pain, low back pain, right foot pain, headache. Patient has been taking Fioricet which she states helps her symptoms. She denies being on any blood thinners. Physical exam is unremarkable except for some ecchymosis on the right medial foot. No focal neurological deficits. She is ambulatory with a slight limp. Patient is extremely tender to palpation over the lower back and on the foot. Response seems exaggerated. Patient jerks away with very light palpation of the skin. CT of the brain is negative. X-ray of the foot shows possible mid foot fracture with recommendation for CT. Because patient is tender over this area, CT was ordered. CT is negative for acute findings. Patient made aware of chronic findings. She was informed that imaging of the coccyx will not change treatment plan. Patient has post-concussion headache, acute exacerbation of chronic low back pain, coccygalgia, and right foot contusion. She is regularly prescribed Percocet, Fioricet with codeine, and muscle relaxers. She was given toradol, Fioricet, and Norflex in the ED and discharged with a short course of Fioricet without codeine (as this was most helpful for her symptoms). Patient was told to follow-up with her PCP or return for worsening symptoms. She understands and agrees to plan. Diagnosis Primary Impression: Post-concussion headache Additional Impressions: Low back strain Qualified Code: S39.012A - Low back strain, initial encounter Coccygalgia Contusion of right foot Qualified Code: S90.31XA - Contusion of right foot, initial encounter Ruled Out: Contusion of left foot Referrals: Primary Care Physician Patient Instructions: Coccyx Injury (ED), Concussion (ED), General Instructions Additional Instructions: Rest and drink plenty of fluids. Take Fioricet as directed, as needed for pain. Take ibuprofen with food as directed, as needed for pain. Apply ice to the affected area for 20 minutes at a time, as needed for pain and swelling. Follow-up with a primary care physician. Return to the emergency room for worsening symptoms. Scripts Tsfzrztgyt-Cbstskesgdluj-Eippuekm (Fioricet)50-300-40 Mg Cap1 Cap PO Q6HR PRN ( HEADACHE) #7 CAP Ref 0 Prov:Toni Colvin MD 04/01/17 Disposition: 01 DISCHARGE HOME Condition: Stable Rosalee Wooten April 01, 2017 14:06
[2017-04-01 14:50] VITALS: RESP 16
--- NOTE | 2017-04-01 14:54 | RADHPO ---
EXAM DATE/TIME: 04/01/2017 14:03 [facility] COMPARISON: No previous studies available for comparison. INDICATIONS : Right medial foot pain, slipped and fell on a dock. MEDICAL HISTORY : None. SURGICAL HISTORY : None. ENCOUNTER: Initial ACUITY: 4 - 6 days PAIN SCORE: 7/10 LOCATION: Right medial foot FINDINGS: Three view examination of the right foot has arrows placed by the technologist delineating the area o f discomfort along the medial foot. While I do not see an actual fracture line, there is some regiona l soft tissue swelling, a double density and an unusual beaked in the region of the navicular. There is a crescentic ossification which appears subjacent to and just lateral to the cuboid characte ristic of a accessory ossification. Calcaneal spurs at the plantar aponeurosis and Achilles attachmen t. CONCLUSION: 1. 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 2. Mild soft tissue swelling with a double density/navicular beak. A midfoot fracture cannot be exclu ded. If patient has significant discomfort, recommend CT scan for further characterization. Ignacio Cunningham MD on April 01, 2017 at 14:39 Board Certified Radiologist. This report was verified electronically.
--- NOTE | 2017-04-01 15:20 | RADHPO ---
EXAM DATE/TIME: 04/01/2017 14:29 [facility] COMPARISON: CT BRAIN W/O CONTRAST, June 15, 2016, 18:00. INDICATIONS : Fall 4 days ago, cephalgia. RADIATION DOSE: 67.08 CTDIvol (mGy) MEDICAL HISTORY : Hypertension. SURGICAL HISTORY : Hysterectomy. ENCOUNTER: Initial ACUITY: 4 - 6 days PAIN SCALE: 5/10 LOCATION: Bilateral cranial TECHNIQUE: Multiple contiguous axial images were obtained of the head. Using automated exposure control and adj ustment of the mA and/or kV according to patient size, radiation dose was kept as low as reasonably a chievable to obtain optimal diagnostic quality images. FINDINGS: CEREBRUM: The ventricles are normal for age. No evidence of midline shift, mass lesion, hemorrhage or acute in farction. No extra-axial fluid collections are seen. POSTERIOR FOSSA: The cerebellum and brainstem are intact. The 4th ventricle is midline. The cerebellopontine angle i s unremarkable. EXTRACRANIAL: The visualized portion of the orbits is intact. SKULL: The calvaria is intact. No evidence of skull fracture. CONCLUSION: No acute intracranial findings. Kevin Stanley MD on April 01, 2017 at 15:17 Board Certified Radiologist. This report was verified electronically.
--- NOTE | 2017-04-01 15:46 | RADHPO ---
EXAM DATE/TIME: 04/01/2017 15:11 [facility] COMPARISON: FOOT RIGHT COMPLETE ([id number]), April 01, 2017, 14:03. INDICATIONS : Trauma, fall. Abnormal foot radiograph. RADIATION DOSE: 6.13 CTDIvol (mGy) MEDICAL HISTORY : None SURGICAL HISTORY : None. ENCOUNTER: Initial ACUITY: 1 day PAIN SCALE: 8/10 LOCATION: Right foot TECHNIQUE: Volumetric scanning of the foot was performed. Using automated exposure control and adjustment of th e mA and/or kV according to patient size, radiation dose was kept as low as reasonably achievable to obtain optimal diagnostic quality images. FINDINGS: No evidence of acute fracture. Alignment within normal limits. Type III accessory navicular. The cata cular otherwise within normal limits. No evidence of joint narrowing. No focal bone erosion. Mildly deformed os peroneum. All visualized tendons are intact. CONCLUSION: No evidence of acute fracture. Elongated ossicle described on x-ray report represents a mildly deform ed and fragmented os perineum. 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 Kevin Stanley MD on April 01, 2017 at 15:38 Board Certified Radiologist. This report was verified electronically.
[2017-04-01] MEDS ORDERED: BUTA1CAP PO ×2 (16:11→16:12)
[2017-04-01 16:12] VITALS: TEMP 98.5
[2017-04-01] MEDS ORDERED: ORPHENADRINE INJ 60 MG/2 ML AMP IM ONE (16:15)
[2017-04-01] MEDS ORDERED: KETOROLAC TROMETHAMINE 60 MG/2 ML (IM) VIAL IM ONE (16:15)
== END 2017-04-01 16:35 | disposition home or self-care (01) ==
LOC: PHEFT 13:04
DX: F07.81 Postconcussional syndrome (principal); G44.309 Post-traumatic headache, unspecified, not intractable; S39.012A Strain of muscle, fascia and tendon of lower back, initial encounter; S90.31XA Contusion of right foot, initial encounter; M53.3 Sacrococcygeal disorders, not elsewhere classified; I10 Essential (primary) hypertension; J45.909 Unspecified asthma, uncomplicated; W01.0XXA Fall on same level from slipping, tripping and stumbling without subsequent striking against object, initial encounter; Y92.814 Boat as the place of occurrence of the external cause
CPT/HCPCS: 70450; 73630; 73700; 96372; 99285; J1885; J2360